=== PATIENT | male | born 1940 | race Caucasian/White ===

== ENCOUNTER → 2017-03-04 | Outpatient (CLI) | payer MEDICARE, BC ==
[~2017-03-04] MED LIST: ASA325 MG PO; CARDIZEM90 MG PO; COLACE-DPS100 MG PO; COZAAR100 MG PO; HCTZ12.5 MG PO; LOPID DPS600 MG PO; MIRALAX17 GM PO; PRESERVISION A1 EACH PO; PROTONIX40 MG PO; SENOKOT S1 TAB PO; TYLENOL DPS325 MG PO
== END | disposition home or self-care (01) ==
LOC: PTH.S 09:50
DX: Z01.818 Encounter for other preprocedural examination (principal); I10 Essential (primary) hypertension

== ENCOUNTER 2017-03-19 09:59 | Inpatient (IN) | payer MEDICARE, BC ==
[~2017-03-19] VITALS: Ht 185.4 cm; Wt 108.0 kg
--- NOTE | 2017-03-19 13:43 | HP ---
ADMIT: 03/19/2017 RM/LOC: W.06 [facility] MR#: [id number] 26[address] [facility] [address] [place], [place] [address] FRANCISCO LARA Marissa [address] [address] Pre-OP History and Physical SEX: M AGE: 76 : 1940 DATE OF SERVICE: CHIEF COMPLAINT: Right knee pain. HISTORY OF PRESENT ILLNESS: The patient is a 76-year-old, white male with right knee pain that he has had for several years. At that point in time, he is having problems walking and sleeping. He even has been falling down. PAST MEDICAL HISTORY: Significant for hypertension, I believe he has little COPD, he has had knee arthroscopy, cataract extraction, tonsillectomy, and hernia repair. MEDICATIONS: 1. ProAir inhaler. 2. PreserVision. 3. Diltiazem. 4. Hydrochlorothiazide. 5. Gemfibrozil. 6. Losartan. ALLERGIES: NO ALLERGIES. SOCIAL HISTORY: The patient does not smoke or regularly drink alcohol. PHYSICAL EXAM: The patient has 5 degrees of full extension, flexion to 110 degrees. Significant varus orientation. Knee tender over the medial joint line and patellofemoral crepitus. IMAGING DATA: X-rays show right knee severe DJD, bone on bone medially. ASSESSMENT AND PLAN: Left severe knee degenerative joint disease. At this point in time, I will plan left total knee arthroplasty. The patient and his healthcare provider understand the risks and benefits of the surgical intervention and desired to proceed. He will see his medical doctor, Dr. Fonseca for preoperative medical clearance who will follow him postop in the hospital for anticoagulation and any medical issues that may arise. Please refer to that H and P for any in-depth medical issues or medication changes. Eder Finch MD/ jose armando JOB #: [id number] CC: Eder Finch, Attending Physician Sam Fonseca, Family Physician
--- NOTE | 2017-03-26 14:37 | OR ---
ADMIT: 03/19/2017 RM/LOC: 526 [facility] MR#: [id number] [facility]#: [id number] [address] [place], [place] [address] FRANCISCO LARA Marissa [address] [address] Operative/Delivery Room Report SEX: M AGE: 76 : 1940 SURGERY DATE: 03/19/2017 SURGEON: Eder Finch MD PREOPERATIVE DIAGNOSIS: Right severe knee degenerative joint disease. POSTOPERATIVE DIAGNOSIS: Right severe knee degenerative joint disease. PROCEDURE PERFORMED: Right total knee arthroplasty with Monroe and Monroe system, size 5 posterior stabilized femoral component, size 5 tibial tray, 8 mm posterior stabilized tibial insert, size 41 patellar button. EDGING MACHINE CATCHER: RAMSES Bonner. ANESTHESIA: Spinal. ESTIMATED BLOOD LOSS: Minimal. FLUIDS: Per anesthetic record. COMPLICATIONS: None. DRAINS: One. TOURNIQUET TIME: 59 minutes. CONDITION ON DISCHARGE: The patient returned to the recovery room in fair condition. INDICATIONS: The patient has severe right knee DJD with flexion and varus deformities of a significant degree. He has had problems falling, he and the family desire surgical intervention. They understand risks and benefits of the procedure and desired to proceed with the operation. DESCRIPTION OF PROCEDURE: The patient was taken to the OR, spinal placed. He was laid in the supine position. All bony prominences were well padded. A well-padded tourniquet applied to right lower extremity. Right lower extremity was prepped and draped in the usual sterile fashion. It was exsanguinated and tourniquet inflated to 350 mmHg. An anterior incision was made starting above the patella carried down the medial aspect of the tibial tubercle through the skin and subcutaneous tissue with a skin knife. Medial arthrotomy was then performed with #10 blade. The patella everted. Knee flexed. The ACL, PCL, medial and lateral menisci excised. Step drill was then used to open the intramedullary canal of the femur. I placed an IM alignment guide with the distal femoral cutting block down the intramedullary canal of the femur set at 14 mm resection 3 degrees of valgus cut due to its severe flexion contracture and varus deformity. I pinned it to the anterior aspect of the distal femur and removed the IM alignment guide. I cut the distal femur using an oscillating saw. I then removed this cutting block ADMIT: 03/19/2017 RM/LOC: [address] [facility] MR#: [id number] [address] [address] FRANCISCO LARA [address] [place] [address] Operative/Delivery Room Report SEX: M AGE: 76 : 1940 sized the femur at 5. I placed a size 5 four-in-one cutting block in the distal aspect of the femur in 3 degrees of external rotation, made the 4 appropriate cuts using an oscillating saw. I removed this cutting block and placed the box cutting jig on the distal aspect of the femur. I cut the box of the distal femur using a reciprocating saw. The proximal tibia was then cut perpendicular long axis of the tibial shaft using the proximal tibial cutting guide and oscillating saw. Again, I had to release his MCL as far distally as I could without completely releasing it. I tried to get this to open up, he had such a severe contracture. I was able to balance the ligaments nicely. I then cut the posterior aspect of the patella, flushed with the posterior aspects of the quadriceps and patella tendons using the patella cutting saw. This was sized to 41 and step drilled with a guide. Trial components were then placed, a size five tibial tray with 8 mm insert, gave excellent range of motion, stability, and patellar tracking. Thus, the femoral component was step drilled. The tibial component was step drilled and cruciate punched. Trial components were then removed. Knee thoroughly irrigated with bacitracin and dried. Knee thoroughly injected with Exparel- like compound. I then cemented the tibia, patella, and femoral components into place removing all extraneous cement as it dried. I then impacted the 8 mm insert into the tibial tray and ran the knee through a range of motion. It had excellent range of motion, stability patellar tracking. Thus, one deep drain was then placed. The medial arthrotomy closed using #1 Vicryl. Subcutaneous tissue closed using 2-0 Vicryl. Skin closed using rik. Wounds were washed, dried, dressed with sterile Adaptic, 4x4s, ABD, Webril, and Bob wrap. Drapes were removed. Tourniquet was let down. An ice pad was placed on top of the Bob wrap. The patient was transferred back to the recovery room in fair condition. Eder Finch MD/ jose armando JOB #: [id number] CC: Eder Finch, Attending Physician Sam Fonseca, Family Physician
--- NOTE | 2017-04-01 08:10 | CO ---
ADMIT: 03/19/2017 RM/LOC: [facility] MR#: [id number] [address] [place], [place] [address] FRANCISCO LARA [address] [place] [address] Consultation Report SEX: M AGE: 76 : 1940 DATE OF CONSULTATION: 03/05/2017 ATTENDING PHYSICIAN: Eder Finch CONSULTING PHYSICIAN: Sam Fonseca DO DATE OF PLANNED SURGERY: 03/19/2017 HISTORY OF PRESENT ILLNESS: This is a 76-year-old, male patient, well known to me. He is preparing for a long overdue right knee replacement to be performed by Dr. Finch on the 19 of March. He has a long-standing history of DJD, and has been increasingly impaired and immobilized by the pain in his knee. He has a prior medical history of hypertension, hyperlipidemia, obesity, chronic sensorineural hearing loss, and osteoarthritis. Surgically he has had prior knee scoping procedure, vascular stenting in the leg, and hernia repair. MEDICATIONS: 1. Aspirin 325 mg daily which he will hold for the week in advance of surgery. 2. Diltiazem 180 mg XR one daily. 3. Gemfibrozil 600 mg p.o. daily. 4. Hydrochlorothiazide 25 mg p.o. every morning. 5. Losartan 100 mg p.o. daily. 6. PreserVision daily. 7. ProAir p.r.n. SOCIAL HISTORY: He is single and does not smoke. He has a prior history of smoking. His family consisting of his sister provides a lot of his oversight and assistance with his care. FAMILY HISTORY: Not contributory. REVIEW OF SYSTEMS: He is not having problems with his COPD currently. No cough sputum production, shortness of breath. Denies nausea, vomiting, diarrhea, constipation, bleeding, clotting or chest pain. He is not having any palpitations. PHYSICAL EXAMINATION: GENERAL: He is pleasant, alert, hard of hearing. His blood pressure is 138/64, heart rate is 67, weight is 230 pounds, he is 5 feet 10-1/2 inches tall with a BMI of 32.5. HEENT: Ear, nose, and throat bilateral hearing aids. No evidence of cerumen impaction. No JVD or bruits. HEART: Regular. LUNGS: Distant, but clear. ABDOMEN: Soft, nontender. He has no peripheral edema. ADMIT: 03/19/2017 RM/LOC: [facility] MR#: [id number] [address] [address] FRANCISCO LARA [address] [place] [address] Consultation Report SEX: M AGE: 76 : 1940 NEUROLOGICAL: He is nonfocal. LABORATORY DATA: Shows a normal BUN and creatinine. Blood sugar and electrolytes. His CBC shows a white count of 5.2, hemoglobin of 16.2. He has a sinus rhythm on his EKG. IMPRESSION: Generally well compensated COPD, hypertension, and hyperlipidemia making the patient an appropriate surgical candidate for his knee replacement. We are going to have him hold his aspirin leading up to surgery but then use aspirin as DVT prophylaxis thereafter. I will continue his usual home medications postoperatively and assist with monitoring and management. Sam Fonseca DO/ jose armando JOB #: [id number] CC: Eder Finch, Attending Physician Sam Fonseca, Family Physician
--- NOTE | 2017-04-02 15:05 | DS ---
ADMIT: 03/19/2017 RM/LOC: 526 [facility] MR#: [id number] ACC#: [id number] 26[address] [facility] [address] [place], [place] [address] MIHAI LARA [address] [address] General Discharge Summary SEX: M AGE: 76 : 1940 ADMISSION DATE: 03/19/2017 DISCHARGE DATE: 03/22/2017 REASON FOR ADMISSION: Elective right total knee arthroplasty after failing conservative management for osteoarthritis. PREOPERATIVE DIAGNOSIS: Right knee degenerative joint disease. POSTOPERATIVE DIAGNOSIS: Right knee degenerative joint disease. PROCEDURE PERFORMED: Right total knee arthroplasty. ANESTHETIC: Spinal. COMPLICATIONS: None. BLOOD LOSS: Minimal. SURGEON: Eder Finch MD. MED SURG NURSE: RAMSES Bonner. ACTIVE MEDICAL PROBLEMS: Osteoarthritis, well-compensated COPD, hypertension, and hyperlipidemia. HOSPITAL COURSE: Mihai was admitted on 03/19/2017 for elective right total knee arthroplasty, it was completed successfully by Dr. Finch. There were no complications. He tolerated the procedure well. Postoperatively, he participated well with physical therapy. Progressing with his exercises. His pain was well controlled postoperatively with oral analgesics as well as the intraoperative pain cocktail. Hemovac drain was removed on day 1. Hospital course was otherwise unremarkable and was stable and ready for discharge on postoperative day 3. Hemoglobin dropped to only 12.6 postoperatively. DISCHARGE MEDICATIONS: 1. Aspirin 325 mg daily x6 weeks. 2. Cozaar 100 mg daily. 3. HydroDIURIL 25 mg daily. 4. Lopid 600 mg daily. 5. MiraLAX p.r.n. 6. Protonix 40 mg daily while on aspirin. 7. Senokot b.i.d. p.r.n. 8. Therapeutic multivitamin daily. 9. Cardizem 180 mg daily. 10.Tylenol 650 mg q.4 p.r.n. 11.Ultram 50 mg 1 to 2 q.6 p.r.n. 12.Benadryl 25 mg p.r.n. 13.Cepacol p.r.n. 14.Colace 100 mg b.i.d. p.r.n. ADMIT: 03/19/2017 RM/LOC: 526 [facility] MR#: [id number] [address] [facility] [address] [place] [address] MIHAI LARA [address] [place] [address] General Discharge Summary SEX: M AGE: 76 : 1940 15.Compazine p.r.n. 16.Dulcolax p.r.n. 17.Flexeril 10 mg t.i.d. p.r.n. 18.Maalox p.r.n. 19.Milk of magnesia p.r.n. 20.OxyIR 5 mg 1 to 2 q.4 p.r.n. 21.Tums p.r.n. 22.Zofran 4 mg q.4 p.r.n. 23.DuoNeb p.r.n. 24.Proventil HFA 2.5 mg q.4 p.r.n. DISCHARGE INSTRUCTIONS: Mihai will undergo therapy in [facility] per total knee arthroplasty protocol. Follow in the orthopedic office in 2 weeks for wound check, 6 weeks with x-rays. Follow up with primary care as directed. Waqar Banerjee PA-C / Eder Finch MD / modl JOB #: [id number] CC: Eder Finch MD, Attending Physician Sam Fonseca DO, Family Physician
[2017-04-08] MEDS ORDERED: CARDIZEM90 MG PO (07:29)
[2017-04-08] MEDS ORDERED: LOPID DPS600 MG PO (07:29)
[2017-04-08] MEDS ORDERED: HCTZ12.5 MG PO (07:29)
[2017-04-08] MEDS ORDERED: COZAAR100 MG PO (07:29)
[2017-04-08] MEDS ORDERED: ASA325 MG PO (07:30)
[2017-04-08] MEDS ORDERED: MIRALAX17 GM PO (07:30)
[2017-04-08] MEDS ORDERED: PROTONIX40 MG PO (07:30)
[2017-04-08] MEDS ORDERED: PRESERVISION A1 EACH PO (07:30)
[2017-04-08] MEDS ORDERED: TYLENOL DPS325 MG PO (07:31)
[2017-04-08] MEDS ORDERED: SENOKOT S1 TAB PO (07:31)
[2017-04-08] MEDS ORDERED: COLACE-DPS100 MG PO (07:31)
== END 2017-03-22 11:20 | DRG 470 ==
LOC: 5MS 10:01 → WOR 10:01 → 5MS 14:40
PROVIDERS: ADMIT Orthopaedic Surgery
PROC: 0SRC0J9 Replacement of Right Knee Joint with Synthetic Substitute, Cemented, Open Approach (ICD-10-PCS; principal; 2017-03-19)
DX: M17.11 Unilateral primary osteoarthritis, right knee (principal); J44.9 Chronic obstructive pulmonary disease, unspecified; H90.5 Unspecified sensorineural hearing loss; I10 Essential (primary) hypertension; E78.5 Hyperlipidemia, unspecified; E66.9 Obesity, unspecified; Z79.82 Long term (current) use of aspirin; Z91.81 History of falling; Z87.891 Personal history of nicotine dependence; Z68.30 Body mass index [BMI] 30.0-30.9, adult

== ENCOUNTER 2017-03-22 11:38 | Inpatient (IN) | payer MEDICARE, BC ==
[~2017-03-22] VITALS: Ht 185.4 cm; Wt 107.0 kg
--- NOTE | ~2017-03-22 | PNE ---
"ADMIT DATE: 03/22/17 ROOM#: [id number] | MR#: [id number] | | [facility] MIHAI LARA | [address] | [facility] [address] | | PHYSICAL THERAPY SEX: M AGE: 76 : [birth year] | PROGRESS NOTE EXTENSION Rehab Plan of Care Update Dr. Fonseca, This letter is regarding your patient, Mihai Lara, at [facility], with an original goal date of 03/29/17. The patient has progressed, but would benefit from further safety with gait, transfers, and ADL training to allow for increased safety. We plan to extend this patient until 04/05/17 for daily treatment sessions. PT 5x/week OT 5x/week Please let me know if you have any questions or concerns with these goals or patient's plan of care. Thank you, Ashley Kincaid, PT, DPT ALY Velazquez Therapist Signature: Date: Therapist Signature: Date: Physician Signature: Date: "
--- NOTE | 2017-03-25 11:14 | NUR ---
PATIENT NOTE FRANCISCO HAS BEEN ADMITTED TO [facility] FOLLOWING HIS RIGHT TOTAL KNEE SURGERY THAT WAS DONE AT [facility]. HE IS A ALERT, ORIENTED AND VERY PLEASANT 76 YEAR OLD WHO DOES LIVE AT HOME ALONE. IN VISITING WITH FRANCISCO AND HIS SISTER SHARI HE DOES WELL AT HOME, INDEPENDENT WITH CARES AND TASK. THE ONE THING HE DOES HAVE HELP WITH IS TRANSPORTATION FOR GROCERIES AND APPOINTMENTS. FRANCISCO IS HERE UNDER HIS MEDICARE BENEFITS WITH THERAPY THE SKILLED SERVICE. HIS GOAL /PLAN IS TO REMAIN HERE FOR SHORT TERM REHAB AND THEN D/C TO HOME. SOCIAL WORK TO FOLLOW AND ASSIST WITH D/C PLANNING AND WITH CONCERNS OR NEEDS THAT MAY ARISE.
--- NOTE | 2017-03-26 09:57 | NUR ---
INTERVIEW FOR MDS 3.0-PT. IS ALERT, CHEERFUL, SITTING IN HIS RECLINER READING THE NEWS PAPER. PT. IS VERY HARD OF HEAR, READS LIPS AND DOES INCORPORATE SIGN LANGUAGE. UNDERSTAND MOST OF THE TIME WHAT YOU ARE SAYING, MAY NEED TO REWORD OR REPEAT. PT. KNOWS THE YEAR, MONTH AND DAY OF THE WEEK. PT. CAN REPEAT AND RECALL ALL THREE WORDS WITHOUT CUES. PT. DENIES DEPRESSION, IF FACT SAYS HE'S HAPPY. STATES HIS APPETITE IS GOOD AND DOES NOT SLEEP ALL THAT WELL, BACK PAIN OTHERWISE NO PAIN. NOT IMPORTANT TO CHOOSE THE CLOTHES HE WEARS, LIKES TO SHOWER AND LIKE TO CHOOSE THE TIME HE GOES TO BED. DOES NOT NEED TO LOCK UP HER PERSONEL ITEMS AND DOES NOT USE THE PHONE MUCH. LIKES GROUP ACTIVITIES SOMETIMES, LIKES TO KEEP UP WITH THE NEWS AND LIKES TO READ. TODAY HE STATES HE IS GETTING HIS EYES CHECKED. LIKES TO GO OUTSIDE AND LIKES ORTHODOX. GOAL IS TO RETURN HOME, IT SOUNDS LIKE HE IS GETTING A NEW APT. OR GOING TO LIVE WITH HIS DTR IN HER APT. NOT SURE WHAT HE IS SAYING. STATES HE NEEDS A LITTLE HELP GETTING DRESSED SOMETIMES, BELINDA. HIS LOWER BODY. OTHERWISE HE FEELS HE'S PRETTY INDEPENDENT. STATES HE HAS VERY LITTLE PAIN. SOMETIMES IN HIS BACK WHEN HE IS LAYING IN BED AND INDICATES VERY LITTLE IN HIS KNEE. LEAVING FOR HIS APPT. THANKED HIM FOR THE NICE VISIT AND NICE INTERVIEW. WISHED HIM A GOOD DAY.
--- NOTE | 2017-04-05 15:34 | NUR ---
PATIENT NOTE FRANCISCO WILL BE D/C TO HIS HOME 04/06 AT 11AM. HIS SISTER SHARI WILL BE HERE AT 11AM. I CALLED AND NOTIFIED [employer] WITH [employer] ON AGING OF THE D/C DATE, SHE WILL CALL AND NOTIFY THE CHORE PROVIDER. WITH PERMISSION FROM FRANCISCO AND HIS FAMILY I CALLED AND STARTED [employer] WHEELS TO BEGIN SUNDAY 04/08, [facility] WILL ALSO BE INSTALLED SATURDAY AT 1PM. [facility] OPTIONS WERE GIVEN AND THEY CHOSE [facility], REFERRAL HAS BEEN FAXED AND THEY WILL BEGIN SERVICES SATURDAY 04/07. FRANCISCO HAS HIS OWN WALKER HERE ON THE UNIT. HE REMAINS ALERT AND ORIENTED AND HE VOICED NO CONCERNS WITH HIS CARE OR STAY. I WISHED HIM WELL AT HOME.
[2017-04-08] MEDS ORDERED: HCTZ12.5 MG PO (07:29)
[2017-04-08] MEDS ORDERED: COZAAR100 MG PO (07:29)
[2017-04-08] MEDS ORDERED: CARDIZEM90 MG PO (07:29)
[2017-04-08] MEDS ORDERED: LOPID DPS600 MG PO (07:29)
[2017-04-08] MEDS ORDERED: PRESERVISION A1 EACH PO (07:30)
[2017-04-08] MEDS ORDERED: PROTONIX40 MG PO (07:30)
[2017-04-08] MEDS ORDERED: MIRALAX17 GM PO (07:30)
[2017-04-08] MEDS ORDERED: ASA325 MG PO (07:30)
[2017-04-08] MEDS ORDERED: COLACE-DPS100 MG PO (07:31)
[2017-04-08] MEDS ORDERED: SENOKOT S1 TAB PO (07:31)
[2017-04-08] MEDS ORDERED: TYLENOL DPS325 MG PO (07:31)
== END 2017-04-06 11:25 | disposition home health service (06) | DRG 561 ==
LOC: SNU 11:38
PROVIDERS: ADMIT Internal Medicine
PROC: F07M3ZZ Motor Function Treatment of Musculoskeletal System - Whole Body (ICD-10-PCS; principal; 2017-03-22)
PROC: F08Z4ZZ Home Management Treatment (ICD-10-PCS; principal; 2017-03-22)
DX: Z47.1 Aftercare following joint replacement surgery (principal); J44.9 Chronic obstructive pulmonary disease, unspecified; H90.5 Unspecified sensorineural hearing loss; I10 Essential (primary) hypertension; E78.5 Hyperlipidemia, unspecified; E66.9 Obesity, unspecified; M19.90 Unspecified osteoarthritis, unspecified site; Z95.820 Peripheral vascular angioplasty status with implants and grafts; Z87.891 Personal history of nicotine dependence; Z11.1 Encounter for screening for respiratory tuberculosis